=== PATIENT | male | born 1970 | race Caucasian/White ===

== ENCOUNTER → 2017-05-14 07:36 | Outpatient (CLI) | payer MEDICAID, SELFPAY ==
[2017-05-14 14:26] LABS: Anion Gap 15.6 mEq/L (5-15); Blood Urea Nitrogen 20 mg/dL (7-18); Carbon Dioxide 23 mmol/L (21.0-32.0); Chloride 101 mmol/L (98-107); Chol/HDL Ratio 3.5 (1-3.5); Cholesterol 176 mg/dL (140-200); Creatinine,Serum 1.08 mg/dL (0.70-1.30); Estimated Glomerular Filt Rate 74 ml/min (>60); Free Thyroxine Index 1.4 ug/dL (5.93-13.13); GFR (African American) 90 ML/MIN (>60); Glucose 115 mg/dL (74-106); HDL Cholesterol 50 mg/dL (27-67); LDL Cholesterol 101 mg/dL (0-130); Potassium 4.6 mmoL/L (3.5-5.1); Sodium 135 mmol/L (136-145); T4 (Thyroxine) 3.3 ug/dl (4.7-13.3); Thyroid Stimulating Hormone 1.38 uIU/ml (0.358-3.740); Triglycerides 125 mg/dL (30-200); Triiodothryronine (T3) Uptake 41 % (31-39); VLDL Cholesterol 25 mg/dL (0-40)
[2017-05-14 14:46] LABS: Hemoglobin A1C 5.2 % (0.0-7.0)
== END ==
PROVIDERS: PCP Nurse Practitioner Family; Visit Provider Internal Medicine Cardiovascular Disease
DX: I25.10 Atherosclerotic heart disease of native coronary artery without angina pectoris (principal); I10 Essential (primary) hypertension; E78.5 Hyperlipidemia, unspecified; R25.1 Tremor, unspecified; R45.0 Nervousness
CPT/HCPCS: 36415; 80048; 80061; 83036; 84436; 84443; 84479

== ENCOUNTER 2017-05-19 08:30 | Outpatient (RCR) | payer MEDICAID, SELFPAY | END 2017-05-19 15:30 | disposition home or self-care (01) | LOC: PT 08:30 | PROVIDERS: Visit Provider Nurse Practitioner Family | DX: M54.5 Low back pain (principal) | CPT/HCPCS: 97033; 97035; 97110; 97140; 97164 ==

== ENCOUNTER → 2017-05-25 15:19 | Outpatient (CLI) | payer MEDICAID, SELFPAY ==
--- NOTE | 2017-05-25 15:35 | XR_ITS ---
EXAM: XR thoracic spine 3V HISTORY: ITS.REASON: UPPER BACK PAIN COMPARISON: None FINDINGS: Normal alignment. There is slight loss of height anteriorly involving T2. This is age indeterminate. No obvious destructive process. Minor degenerative changes are present in the upper and midthoracic spine. There are rods present beginning at T12. These are incompletely imaged. T12 is not included on the lateral view. IMPRESSION: Minor degenerative changes of the thoracic spine with very slight decrease in height anteriorly at T2 age-indeterminate. MRI may be of further value if clinically warranted.
== END ==
PROVIDERS: PCP Nurse Practitioner Family; Visit Provider Nurse Practitioner Family
DX: M54.6 Pain in thoracic spine (principal)
CPT/HCPCS: 72072

== ENCOUNTER → 2018-03-22 11:37 | Outpatient (CLI) | payer MEDICAID, SELFPAY ==
[2018-03-22 15:02] LABS: Alanine Aminotransferase 52 U/L (12-78); Albumin Level 3.7 gm/dL (3.4-5.0); Alkaline Phosphatase 83 U/L (46-116); Aspartate Amino Transferase 27 U/L (15-37); Bilirubin,Direct 0.2 mg/dL (0.0-0.2); Bilirubin,Indirect 0.3 mg/dL (0.0-0.9); Bilirubin,Total 0.5 mg/dL (0.2-1.0); Cholesterol 153 mg/dL (140-200); HDL Cholesterol 51 mg/dL (27-67); LDL Cholesterol 91 mg/dL (0-130); Total Protein,Serum 7.1 gm/dL (6.4-8.2); Triglycerides 56 mg/dL (30-200); VLDL Cholesterol 11 mg/dL (0-40)
== END ==
PROVIDERS: PCP Nurse Practitioner Family; Visit Provider Internal Medicine Cardiovascular Disease
DX: E78.5 Hyperlipidemia, unspecified (principal); I10 Essential (primary) hypertension; I25.10 Atherosclerotic heart disease of native coronary artery without angina pectoris
CPT/HCPCS: 36415; 80061; 80076

== ENCOUNTER → 2019-05-12 08:59 | Outpatient (CLI) | payer MEDICAID, SELFPAY ==
[2019-05-12 10:13] LABS: Alanine Aminotransferase 150 U/L (12-78); Albumin Level 4.6 g/dl (3.5-5.0); Alkaline Phosphatase 76 U/L (38-126); Aspartate Amino Transferase 91 U/L (17-59); Bilirubin,Indirect 0.8 mg/dL (0.0-0.9); Bilirubin,Total 0.8 mg/dl (0.2-1.3); Bilirubin,Unconjugated 0.8 mg/dL (0.0-1.1); Chol/HDL Ratio 3.5 (1-3.5); Cholesterol 163 mg/dl (140-200); HDL Cholesterol 46 mg/dl (40-60); Total Protein,Serum 7.5 g/dl (6.3-8.2); Triglycerides 146 mg/dl (30-150); VLDL Cholesterol 29 mg/dL (0-40)
[2019-05-12 10:24] LABS: Direct LDL Cholesterol 92.66 mg/dL (100-129)
== END ==
PROVIDERS: Visit Provider Internal Medicine Cardiovascular Disease
DX: E78.5 Hyperlipidemia, unspecified (principal); I10 Essential (primary) hypertension; I25.10 Atherosclerotic heart disease of native coronary artery without angina pectoris; K21.9 Gastro-esophageal reflux disease without esophagitis
CPT/HCPCS: 36415; 80061; 80076

== ENCOUNTER 2020-09-23 14:38 | Emergency (ER) | payer MEDICAID, SELFPAY ==
[2020-09-23 15:03] VITALS: BP 142/75; PULSE 77; RESP 20; TEMP 36.7; O2SAT 97; BMI 31.1
--- NOTE | 2020-09-23 15:07 | XR_ITS ---
PROCEDURE INFORMATION: Exam: XR Left Hand Exam date and time: 09/23/2020 3:07 PM Age: 49 years old Clinical indication: Injury or trauma; Other: Crush injury; Laceration; Finger; Left; Thumb; Additional info: Crush injury to thumb TECHNIQUE: Imaging protocol: XR Left hand. Views: 3 or more views. COMPARISON: No relevant prior studies available. FINDINGS: Bones/joints: There is no evidence of acute fracture. 1 mm radiopaque density present within the soft tissues between the thumb and index finger. Old fracture of the 2nd metacarpal. There is no evidence of joint malalignment or dislocation. Soft tissues: Soft tissue laceration along the distal aspect of the thumb. There are no soft tissue masses or fluid collections. IMPRESSION: 1. Soft tissue laceration along the distal aspect of the thumb. 2. No evidence of acute fracture. 3. 1 mm radiopaque density present within the soft tissues between the thumb and index finger. 4. No evidence of acute dislocation.
--- NOTE | 2020-09-23 15:24 | HMH.EDUTC ---
[facility] [place] Clinical Impression: Traumatic amputation of tip of thumb Qualifiers: Encounter type: initial encounter Laterality: left Qualified Code(s): S68.012A - Complete traumatic metacarpophalangeal amputation of left thumb, initial encounter Disposition: Still a Patient Condition on Discharge: Fair Referrals: Bina Guillaume [Primary Care Provider] - Time of Disposition: 15:28 Medical Decision Making - Medical Records Medical records reviewed: No: I reviewed the patient's medical records. - Dharmesh Inquiry Pt receiving controlled substance: No Vital Signs: 09/23/20 15:03 Temperature 98.1 F Temperature Source Oral Pulse Rate [Left] 77 Respiratory Rate 20 Blood Pressure [Right Arm] 142/75 H Blood Pressure Mean [Right Arm] 97 02 Sat by Pulse Oximetry 97 Orders (Tests/Meds): ORDERS Category Date Time Status Hand XR left minimum 3 views [XR hand LT min 3V] Stat Exams 09/23/20 15:07 Taken Medical Decision Narrative: He was transferred to the ER due to the amputation of the tip of his left thumb. [facility] [place] HPI - General Stated complaint: ao 09/23 lacerated lt thumb Time Seen by Provider: 09/23/20 15:24 Mode of Arrival: Ambulatory Source of Information: Patient Limitations: No Limitations Description of Symptoms (Recalled from Triage Doc. by RN): crush injury about 20hrs ago pt caught his L thumb in between a bar working on a tractor. pt is missing a chunk out of the tip of his thumb in the shape of a V. no bone is visible. nail is unaffected. HEENT Symptoms (Recalled from RN notes): No Resp Symptoms (Recalled from RN notes): No Skin Symptoms (Recalled from RN notes): No MS Symptoms (Recalled from RN notes): Yes (pt is missing the tip of his thumb from a crush injury) Functional Status (Recalled from RN notes): na - History of Present Illness Provider Complaint: He states that around 20 hours ago he was working on something at home when a metal bar fell on his left thumb. He states that it mashed the end of his thumb off. He initially thought that he would put a bandage on it and it would heal fine, but thru the night he has had worsening pain of the thumb, so he thought he should come in to get it checked. He is not a diabetic. He is unsure about his tetanus immunization status. - Related Data Home Medications Medication Instructions Recorded Confirmed aspirin 81 mg tablet,delayed 81 mg PO DAILY tab 04/29/17 04/26/20 release colchicine 0.6 mg tablet 0.6 mg PO DAILY tab 04/29/17 04/26/20 allopurinol 100 mg tablet 200 mg PO BID tab 04/30/17 04/26/20 rosuvastatin 40 mg tablet 40 mg PO DAILY tab 05/12/19 04/26/20 metoprolol tartrate 50 mg tablet 75 mg PO DIRECTED tab 04/26/20 04/26/20 Previous Rx's Medication Instructions Recorded losartan 100 mg tablet 100 mg PO DAILY #30 tab 04/30/18 omeprazole 40 mg capsule,delayed See Rx Instructions .ROUTE 09/18/20 release .COMPLEX #30 cap Allergies Allergy/AdvReac Type Severity Reaction Status Date / Time No Known Allergies Allergy Verified 04/26/20 13:56 - Worker's Comp Is this a Worker's Comp case?: No [facility] History - Hepatitis A Screen Drug use history?: No High risk sexual behaviors?: No History of sexually transmitted infection?: No Currently employed?: No Childcare worker?: No Do you have indoor plumbing?: Yes Do you have electricity?: Yes Attestation statement:: This patient has been screened for Hepatitis A risk factors. I have reviewed the patient's past medical history: Yes Medical History: Reports:: Coronary Artery Disease, Gastroesophageal Reflux Disease(GERD), Hyperlipidemia, Hypertension Denies:: Diabetes Mellitus Type 1, Diabetes Mellitus Type 2 Other Surgeries: Yes: No Previous Surgery, Cardiac Catheterization, Coronary Stent - Social History Smoking Status: Never smoker Alcohol Intake: never Alcohol Intake Frequency:: a few times a month Substance Use Type: denies use Occupational Status: e
[2020-09-23 15:46] VITALS: BP 129/76; PULSE 64; RESP 16; TEMP 36.6; O2SAT 98; BMI 31.1
--- NOTE | 2020-09-23 16:41 | PC.NURSE ---
Dr Thomas spoke with Dr Nunez
--- NOTE | 2020-09-23 16:42 | HMH.EDGENADL ---
ED Disposition Clinical Impression: Avulsion, skin Disposition: Home, Self-Care Condition on Discharge: Good Additional Instructions: Keep bandage on until seen by Dr. Nunez on Thursday. Call Dr. Nunez's office tomorrow to arrange an appointment for 09/25/2020. Keflex as prescribed. [place] as needed for pain. Additional instructions for CONTROLLED SUBSTANCES: You have been prescribed a medication that is a controlled substance. Controlled substances include pain medications known as opiates and sedative nerve medications known as benzodiazepines. Tramadol, fioricet, and gabapentin are also controlled substances. Some common opiates include: Codeine (such as Tylenol #3) Hydrocodone (Vicodin, Lortab, Lorcet, [place]) Oxycodone (Percocet, Percodan, Oxycodone, Oxy IR) Some common benzodiazepines include: Diazepam (Valium) Lorazepam (Ativan) Alprazolam (Xanax) Clonazepam (Klonopin) Oxazepam (Serax) All of these controlled substances are highly addictive and frequently abused. Misuse can and frequently does lead to addiction as well as overdose and . Medication should be stored in a locked cabinet or other secure storage unit. Do not store the medication in a motor vehicle. Short term supplies, 3 days or less, are prescribed because of the highly addictive nature of the medication. Any of the controlled substance medication NOT taken should be disposed of properly and NOT SAVED. The recommended method of disposing of unused medications is: Place the medicines in a sealable plastic bag. If the medicine is a solid, crush it or add water to dissolve it. Add something undesirable (cat litter, coffee grounds, etc.) Dispose of sealed bag in household trash Do not flush or pour unused medicines down a sink or drain. Controlled substances should not be shared, given away or sold. Because of the addictive nature and frequent abuse, these medications are sometimes stolen. These medications should be kept in a safe place where they cannot be stolen. Do not keep them in your car or purse. Lost or stolen prescriptions for controlled substances WILL NOT BE REFILLED in this emergency department, regardless of whether a police report was filed. Prescriptions: Hydrocod/Acet 5/325 mg [[place] 5/325mg tablet] 1 tab PO Q6HP PRN #10 tab PRN Reason: Pain Transmission Status: Received by [id number] cephALEXin [cephALEXin 500mg capsule*] 500 mg PO Q6H #20 cap Transmission Status: Received by [id number] Referrals: Bina Guillaume [Primary Care Provider] - Jerry Nunez MD [Staff Physician] - - Critical Care Critical Care Time: No Attestation: On 09/23/20, the high probability of a clinically significant, sudden or life threatening deterioration of the following system(s) required my full and direct attention, intervention and personal management. The time I documented below is in addition to time spent performing reported procedures but includes the following listed in this critical care notation. Medical Decision Making - Dharmesh Inquiry Pt receiving controlled substance: Yes Dharmesh was queried for this patient: Yes Risks and benefits of using a controlled substance: were discussed with pt by me Vital Signs: 09/23/20 15:03 09/23/20 15:46 Temperature 98.1 F 98 F Temperature Source Oral Oral Pulse Rate [Left] 77 64 Respiratory Rate 20 16 Blood Pressure [Right Arm] 142/75 H 129/76 Blood Pressure Mean [Right Arm] 97 93 Blood Pressure Position [Right Arm] Sitting 02 Sat by Pulse Oximetry 97 98 Oxygen Delivery Method Room Air Orders (Tests/Meds): ED MEDICATIONS Discontinued Medications Generic Name Dose Route Start Last Admin Trade Name Freq PRN Reason Stop Dose Admin Tetanus/Reduced Diphtheria/Acell Pertussis 0.5 ml 09/23/20 15:26 09/23/20 15:48 Tet/Diphth/Pert-Adult 0.5ml Syringe IM 09/23/20 15:27 0.5 ml .ONCE ONE Administration - Physi
--- NOTE | 2020-09-23 17:15 | PC.NURSE ---
LT THUMB CLEANED ADAPTIC APPLIED WITH DSD.
[2020-09-23 17:44] VITALS: BP 123/74; PULSE 89; RESP 16; TEMP 36.6; O2SAT 98
== END 2020-09-23 17:47 | disposition home or self-care (01) ==
LOC: UTC 15:28 → ER 15:32
PROVIDERS: Emergency Provider Emergency Medicine; PCP Nurse Practitioner Family
DX: S68.022A Partial traumatic metacarpophalangeal amputation of left thumb, initial encounter (principal); W23.0XXA Caught, crushed, jammed, or pinched between moving objects, initial encounter; Y92.79 Other farm location as the place of occurrence of the external cause; Z23 Encounter for immunization; I25.10 Atherosclerotic heart disease of native coronary artery without angina pectoris; K21.9 Gastro-esophageal reflux disease without esophagitis; I10 Essential (primary) hypertension; E78.5 Hyperlipidemia, unspecified
CPT/HCPCS: 73130; 90471; 90715; 99282

== ENCOUNTER 2020-10-12 15:30 | Outpatient (RCR) | payer MEDICAID, SELFPAY ==
--- NOTE | 2020-10-04 16:11 | HMH.PTOPWND ---
Rehab Outpt Wound Evaluation Rehab OP Wound Evaluation Start: 10/04/20 15:40 Freq: Status: Active Protocol: Document 10/04/20 15:40 [email or web address] (Rec: 10/04/20 15:47 [email or web address] [id number]) Electronically Signed By Martínez Anders, TIMOTHY 10/04/20 15:40 Subjective/History History History This is the initial wound care evaluation for Jose Juan Mcdonough. Pt is a 49 y/o male referred to wound care for R thumb laceration. Pt reports he was trying to fix a clutch on a tractor when the pry bar sliiped and smashed his R thumb. Pt reports a chunk was taken out of his thumb, but did not have much bleeding or pain. Pt reports he did not get stitches. Pt reports this happened ~ 2 weeks ago. Subjective Subjective Pt does reports tenderness to palpation now Wound Eval Wound Right Distal Thumb Wound Type Laceration Wound Length (cm) 1.3 Wound Width (cm) 1.2 Number of Sutures 0 Number of Sutures Removed 0 Wound Bed Appearance Beefy Red,Zelienople Percentage Granulated (%) 100 Wound Topical Solution/Irrigant Antibiotic Irrigant Primary Dressing Silver Dressing Comment tegederm ag mesh Wound Secondary Dressing Type Gauze Roll/Wrap,Adhering Gauze Roll Comment kin jackson Wound Debridement Method Forceps,Gauze Wound Debridement Amount of Tissue Minimal Removed Wound Debridement Result Healthy Tissue Revealed Dressing Change Date 10/04/20 Wound Problems/Impairments Impairments Problems/Impairmments Palpation Tenderness,Impaired Shower/Bathing,Impaired Household Care,Impaired Recreational Activities, Impaired Work Activities,Wound Care Needs,Subjective C/O Pain Prognosis Rehab Potential Fair Clinical Impression Consistent with Diagnosis Yes Short Term Goals Number of Weeks 4 Decrease Wound Area Yes: 50% Increase Red Granulation Tissue % Yes: 100 Shelter Goals Number of Weeks 8 Decrease Wound Area Yes: epithelialization Patient to be Ind w/ Home Wound Care/ Yes Dressi
== END 2020-10-12 15:35 | disposition home or self-care (01) ==
LOC: PT 15:30
PROVIDERS: Visit Provider Orthopaedic Surgery
DX: S61.012A Laceration without foreign body of left thumb without damage to nail, initial encounter (principal)
CPT/HCPCS: 97162

== ENCOUNTER → 2021-10-24 14:26 | Outpatient (CLI) | payer MEDICAID, SELFPAY ==
[2021-10-24 15:01] LABS: Basophils # 0.1 K/mm3 (0-0.2); Basophils % 1.2 % (0.1-2.0); Eosinophils # 0.2 K/mm3 (0.0-0.4); Eosinophils % 2.9 % (0.1-12.0); Hematocrit 47.2 % (42.0-52.0); Hemoglobin 14.4 g/dL (14.1-18.0); Lymphocytes # 1.8 K/mm3 (0.7-4.5); Lymphocytes % 26.6 % (10-50); Mean Corpuscular HGB Conc 30.4 g/dL (31.8-35.4); Mean Corpuscular Hemoglobin 31.6 pg (27.0-31.2); Mean Platelet Volume 8.3 fl (7.4-10.4); Monocytes # 0.5 K/mm3 (0.1-1.0); Monocytes % 7.5 % (1.7-9.3); Neutrophils # 4.2 K/mm3 (1.8-7.8); Neutrophils % 61.8 % (37.0-80.0); Platelet Count 251 K/mm3 (142-424); Red Blood Count 4.54 M/mm3 (4.60-6.20); Red Cell Distribution Width 13.2 % (11.5-17.5); White Blood Count 6.8 K/mm3 (4.8-10.8)
[2021-10-24 15:16] LABS: Alanine Aminotransferase 28 U/L (12-78); Albumin Level 4.4 g/dl (3.5-5.0); Alkaline Phosphatase 85 U/L (38-126); Anion Gap 7.7 mEq/L (5-15); Aspartate Amino Transferase 32 U/L (17-59); Bilirubin,Direct 0.1 mg/dl (0.0-0.4); Bilirubin,Indirect 0.2 mg/dL (0.0-0.9); Bilirubin,Total 0.3 mg/dl (0.2-1.3); Bilirubin,Unconjugated 0.1 mg/dL (0.0-1.1); Blood Urea Nitrogen 14 mg/dl (9-20); Calcium 9.6 mg/dl (8.4-10.2); Carbon Dioxide 32 mmol/L (22.0-30.0); Chloride 105 mmol/L (98-107); Chol/HDL Ratio 3.6 (1-3.5); Cholesterol 189 mg/dl (140-200); Estimated Glomerular Filt Rate 90 ml/min (>60); GFR (African American) 109 ML/MIN (>60); Glucose 98 mg/dl (74-100); HDL Cholesterol 52 mg/dl (40-60); Magnesium 1.9 mg/dl (1.6-2.3); Potassium 4.7 mmoL/L (3.5-5.1); Sodium 140 mmol/L (136-145); Total Protein,Serum 7.2 g/dl (6.3-8.2); Triglycerides 117 mg/dl (30-150); VLDL Cholesterol 23 mg/dL (0-40)
[2021-10-24 15:32] LABS: Free T4 (Free Thyroxine) 0.74 ng/dl (0.78-2.19)
[2021-10-24 15:47] LABS: Thyroid Stimulating Hormone 0.85 uIU/mL (0.465-4.68)
[2021-10-26 08:35] LABS: Direct LDL Cholesterol 111 mg/dL (100-129)
== END ==
PROVIDERS: PCP Nurse Practitioner Family; Visit Provider Nurse Practitioner
DX: R42 Dizziness and giddiness (principal); I25.10 Atherosclerotic heart disease of native coronary artery without angina pectoris; I10 Essential (primary) hypertension; E78.2 Mixed hyperlipidemia; K21.9 Gastro-esophageal reflux disease without esophagitis
CPT/HCPCS: 36415; 80048; 80061; 80076; 83735; 84439; 84443; 85025

== ENCOUNTER → 2021-12-19 08:10 | Outpatient (CLI) | payer MEDICAID, SELFPAY ==
--- NOTE | 2021-12-19 08:13 | US_ITS ---
FINAL REPORT CLINICAL HISTORY: Right lower quadrant pain for several months in the groin area. FINDINGS: Sonographic images were obtained of the groin area bilaterally. There is no obvious sign of hernia. There are small lymph nodes which are not significantly enlarged. IMPRESSION: No hernia is identified bilaterally. Bilaterally small left nodes, not significantly enlarged. Reviewed, Interpreted and Dictated by Miguel A Hill MD Transcribed by Saritha Yanes Authenticated and [facility]
== END ==
PROVIDERS: PCP Nurse Practitioner Family; Visit Provider Nurse Practitioner Family
DX: R10.9 Unspecified abdominal pain (principal)
CPT/HCPCS: 76705

== ENCOUNTER → 2022-05-19 10:54 | Outpatient (CLI) | payer MEDICAID, SELFPAY ==
--- NOTE | 2022-05-19 | CA_ITS ---
APPROVED REPORT Exam: Exercise Treadmill Technologist: Lyn Coyne, Ht: 6 ft 0 in Wt: 227 lbs BSA: 2.25 m2 HR: 75 bpm BP: 124/88 mmHg Rhythm: NSR Medical History Medical History: HTN, Hyperlipidemia Medications: Omeprazole,,,,, Aspirin,,,,, Losartan,,,,, Metoprolol Succinate,,,,, RoSUVASTATIN,,,,, Cardiac Risk Factors: HTN, Hyperlipidemia Stress Test Details Test: Yobany HR Resting HR: 78 bpm Max Heart Rate (APMHR): 171.075328 bpm Max HR Achieved: 153 bpm Target HR (85% APMHR): 145.401116 bpm % of APMHR: 89.47 Recovery HR: 90 bpm BP Resting BP: 129/85 mmHg Max BP: 178/90 mmHg Recovery BP: 142.0/83.0 mmHg ECG Resting ECG: NSR Clinical Reason for Termination: Dyspnea Exercise duration: 10:02 min Highest Stage Achieved: Exercise capacity: 12.8 METs Stress ECG Conclusion During stress echo pt walked total of 10 minutes, 12.8 METS. No CP noted. No arrhythmias noted. <1.5mm ST segment changes. Negative, see echo. Test Summary REST . . . . . . . Sitting REST . . . . . . . Standing REST 07:21 0.0 1.2 78 . 129/ 85 . . Stage 1 01:00 10.0 1.7 90 . . . . Stage 1 02:00 10.0 1.7 94 . . . . Stage 1 03:00 10.0 1.7 94 . 141/ 80 . . Stage 2 01:00 12.0 2.5 103 . . . . Stage 2 02:00 12.0 2.5 106 . . . . Stage 2 03:00 12.0 2.5 113 . 153/ 82 . . Stage 3 01:00 14.0 3.4 123 . . . . Stage 3 02:00 14.0 3.4 132 . . . . Stage 3 03:00 14.0 3.4 136 . 178/ 90 . . Stage 4 01:00 16.0 4.2 152 . . . . Stage 4 01:02 16.0 3.4 152 . . . Stop exercise at 10:02 RECOVERY 01:00 0.0 0.0 116 . . . . RECOVERY 02:00 0.0 0.0 99 . . . . RECOVERY 03:00 0.0 0.0 105 . . . . RECOVERY 04:00 0.0 0.0 90 . 142/ 83 . . RECOVERY 04:06 0.0 0.0 90 . 142/ 83 . . Electronically signed by : Dl Armando MD 05/19/2022 14:08:18
--- NOTE | 2022-05-19 10:55 | CA_ITS ---
APPROVED REPORT EXAM: Comprehensive 2D, Doppler, and color-flow Echocardiogram Mint Machine Operator: Simran Lopez RVT Ht: 6 ft 0 in Wt: 227lbs BSA: 2.25 BP: 113/68 mmHg Indications: CP,HTN,HLD,GERD Stress Test Details HR Max Heart Rate (APMHR): 171.236384 bpm Target HR (85% APMHR): 145.407108 bpm BP ECG Conclusion 1. Patient exercised on Yobany protocol achieved 12.8 METs of workload on treadmill, the EKG with exercise was negative for ischemia, there was no exercise-induced chest discomfort. 2. Resting echocardiogram showed normal left ventricular size and function, with exercise there is increase in contractility of all the segments of the myocardium with hyperdynamic left ventricular systolic response, no regional wall motion abnormality with exercise to suggest underlying ischemic heart disease. 3. Normal exercise stress echo, normal left ventricular systolic function. Electronically signed by : Dl Armando MD 05/19/2022 14:18:27
== END ==
PROVIDERS: PCP Nurse Practitioner Family; Visit Provider Nurse Practitioner Family
DX: I20.8 Other forms of angina pectoris (principal)
CPT/HCPCS: 93017; 93350